=== PATIENT | male | born 2000 ===

== ENCOUNTER 2021-05-23 20:38 | Emergency (ER) | payer OTHER ==
[~2021-05-23] VITALS: Ht 167.6 cm; Wt 81.5 kg
[2021-05-23 20:58] VITALS: BP 114/81
[2021-05-23] MEDS ORDERED: DEXAMETHASONE 4 MG TABLET PO ONE (21:00)
--- NOTE | 2021-05-23 21:14 | NUR ---
COVID [facility] SENT TO LAB
== END 2021-05-24 01:28 | disposition left against medical advice (07) ==
LOC: ED 21:00
DX: U07.1 COVID-19 (principal); J06.9 Acute upper respiratory infection, unspecified; R51.9 Headache, unspecified
CPT/HCPCS: 71045; 99284; U0003; U0005